=== PATIENT | female | born 1985 | race Caucasian/White ===

== ENCOUNTER 2024-03-19 20:32 | Outpatient (REF) | payer MEDICAID, SELFPAY ==
[2024-03-23 19:07] LABS: Age Gdln ACOG Testing Note (.); HPV Aptima Negative (Negative); IGP, Aptima HPV, rfx 16/18,45 Note (.)
== END 2024-03-19 20:33 | disposition home or self-care (01) ==
LOC: LAB 20:32
PROVIDERS: Visit Provider Physician Assistant
DX: Z01.419 Encounter for gynecological examination (general) (routine) without abnormal findings (principal)
CPT/HCPCS: 87624; G0145

== ENCOUNTER 2024-05-07 12:50 | Outpatient (OUT) | payer MEDICAID, SELFPAY | END 2024-05-07 12:51 | disposition home or self-care (01) | LOC: PST 12:52 | PROVIDERS: Visit Provider Obstetrics & Gynecology | DX: Z01.818 Encounter for other preprocedural examination (principal); Z30.2 Encounter for sterilization ==

== ENCOUNTER 2024-05-18 06:12 | Day surgery (SDC) | payer MEDICAID, SELFPAY ==
[2024-05-07 12:58] VITALS: BP 118/80; PULSE 86; TEMP 36.3; O2SAT 96; BMI 46.1
[2024-05-18] VITALS (17 sets, daily range): BP systolic 102–112; BP diastolic 54–74; PULSE 91–112; TEMP 36.2–36.5; O2SAT 87–97; BMI 46.1
--- OUTSIDE RECORDS SUMMARY | 2024-05-18 06:18 | XMS_ITS | CCD ---
Author Organization [facility] CliniSyme Care Team Providers Care Data Communications Analyst Name Role Phone ROBERT MONTENEGRO Attending Unavailable IDANIA HI Primary Care Unavailable ROBERT MONTENEGRO Admitting Unavailable ARVIN GODOY V Consulting Unavailable ROBERT MONTENEGRO Consulting Unavailable ROBERT MONTENEGRO Consulting Unavailable ROBERT MONTENEGRO Attending Unavailable ROBERT MONTENEGRO Admitting Unavailable MISC, DOCTOR Primary Care Unavailable ROBERT MONTENEGRO Attending Unavailable ROBERT MONTENEGRO Admitting Unavailable IDANIA HI Primary Care Unavailable FRANCES VIVAR Consulting Unavailable ROBERT MONTENEGRO Consulting Unavailable ROBERT MONTENEGRO Attending Unavailable ROBERT MONTENEGRO Admitting Unavailable ROBERT MONTENEGRO Consulting Unavailable IDANIA HI Primary Care Unavailable ROBERT MONTENEGRO Attending Unavailable ROBERT MONTENEGRO Admitting Unavailable ROBERT MONTENEGRO Consulting Unavailable MISC, DOCTOR Primary Care Unavailable ROBERT MONTENEGRO Attending Unavailable ROBERT MONTENEGRO Consulting Unavailable IDANIA HI Primary Care Unavailable ROBERT MONTENEGRO Admitting Unavailable ROBERT MONTENEGRO Attending Unavailable ROBERT MONTENEGRO Admitting Unavailable MISC, DOCTOR Primary Care Unavailable ROBERT MONTENEGRO Attending Unavailable ROBERT MONTENEGRO Consulting Unavailable IDANIA HI Primary Care Unavailable ROBERT MONTENEGRO Admitting Unavailable ROBERT MONTENEGRO Procedure Practitioner Unavailab ROBERT Alva Attending Unavailable ROBERT MONTENEGRO Admitting Unavailable MISC, DOCTOR Primary Care Unavailable TRI PHILLIPS Consulting Unavailable ARVIN GODOY V Consulting Unavailable SEMAJ RINCON Consulting Unavailable ROBERT MONTENEGRO Consulting Unavailable ABIDA HOOVER Consulting Unavailable ALEXIA NIXON Consulting Unavailable ROBERT MONTENEGRO Consulting Unavailable ROBERT MONTENEGRO Admitting Unavailable ROBERT MONTENEGRO Attending Unavailable ROBERT MONTENEGRO Consulting Unavailable ROBERT MONTENEGRO Attending Unavailable ROBERT MONTENEGRO Admitting Unavailable Mikki Huang DO Primary Care Provider IDANIA HI Referring Unavailable IDANIA HI Primary Care Unavailable MIKKI HUANG Attending Unavailable ZULEMA, MALLORIE S Attending Unavailable MIKKI HUANG Attending Unavailable ZULEMA, MALLORIE S Attending Unavailable ZULEMA, MALLORIE S Attending Unavailable ZULEMA, MALLORIE S Attending Unavailable ZULEMA, MALLORIE S Attending Unavailable KAMPFER, ANN Attending Unavailable KAMPFER, ANN Referring Unavailable KAMPFER, ANN Attending Unavailable ZULEMA, MALLORIE S Attending Unavailable LIBRA LOVE Attending Unavailable KAMPFER, ANN Attending Unavailable ZULEMA, MALLORIE S Attending Unavailable ZULEMA, MALLORIE S Attending Unavailable ZULEMA, MALLORIE S Attending Unavailable KAMPFER, ANN Attending Unavailable ROMA VICTORIA Attending Unavailable [facility] Referring Unavailable ZULEMA, MALLORIE S Attending Unavailable MCKENZIE, SEMAJ Attending Unavailable MCKENZIE, SEAMJ Attending Unavailable ZULEMA, MALLORIE S Attending Unavailable Allergies Allergy Classification Reported Allergen(s) Allergy Type Date of Onset Reaction(s) Facility (2 sources) Codeine; Translations: [CODEINE] Drug Allergy 0 [facility] (1 source) Penicillin Drug Allergy 0 [facility] (2 sources) Codeine Drug Allergy [address] [facility] (3 sources) Penicillins; Translations: [PENICILLINS] Drug Intolerance 0 Hives, Rash [facility] Medications Current Medications Medication Drug Class(es) Dates Sig (Normalized) Sig (Original) hydrOXYzine hydrochloride 25 mg oral tablet (2 sources) Antihistamine Start: 06-14-2023 take 1 tablet by mouth three times daily as needed for anxiety hydrOXYzine HCl (Atarax) 25 MG tablet Indications: Anxiety Take 1 tablet (25 mg) by mouth 3 (three) times a day as needed for anxiety. 30 tablet 3 06/14/2023 Active Problems Active Problems Problem Classification Problem Date Documented Da te Episodic/Chronic Anxiety disorders (5 sources) Anxiety; Translations: [Anxiety disorder, unspecified] Onset: 06-14-2023 06-14-2023 Chronic Diabetes mellitus without complication (4 sources) Other abnormal glucose; Translations: [OTHER ABNORMAL GLUCOSE] Onset: 11-01-2020 Episodic Menstrual disorders (4 sources) Secondary amenorrhea; Translations: [SECONDARY AMENORRHEA] Onset: 06-26-2020 Chronic Mood disorders (5 sources) Moderately severe depression; Translations: [Moderately severe depression] Onset: 06-14-2023 06-14-2023 Chronic Other complications of ; puerperium affecting management of mother (1 source) Obesity complicating childbirth; Translations: [OBESITY COMPLICATING CHILDBIRTH] Onset: 12-10-2020 Chronic Other complications of ; puerperium affecting management of mother (1 source) Other mental disorders complicating childbirth; Translations: [OT MENTAL D/O COMP CHILDBIRTH] Onset: 12-10-2020 Episodic Other complications of (4 sources) Maternal care for excessive growth, third trimester, not applicable or unspecified; Translations: [MAT CARE EXCSS FTL GRTH 3RD TRI UNS] Onset: 11-19-2020 Episodic Other complications of (4 sources) Other specified related conditions, unspecified trimester; Translations: [OTH SPEC PREG RELATED COND UNS TRI] Onset: 09-18-2020 Episodic Other nutritional; endocrine; and metabolic disorders (1 source) Obesity, unspecified; Translations: [OBESITY UNSPECIFIED] Onset: 12-10-2020 Chronic Other nutritional; endocrine; and metabolic disorders (2 sources) Morbid obesity; Translations: [Morbid (severe) obesity due to excess calories] Onset: 06-14-2023 06-14-2023 Chronic Other nutritional; endocrine; and metabolic disorders (2 sources) Body mass index 30+ - obesity; Translations: [Obesity, unspecified] Onset: 06-14-2023 06-14-2023 Chronic Other nutritional; endocrine; and metabolic disorders (2 sources) Body mass index 40+ - severely obese; Translations: [Body mass index (BMI) 40.0-44.9, adult] Onset: 06-14-2023 06-14-2023 Chronic Other and delivery including normal (10 sources) Encounter for routine follow-up; Translations: [Encounter for supervision of normal , unspecified, third trimester] Onset: 06-03-2020 Episodic Previous (3 sources) Maternal care for low transverse scar from previous delivery; Translations: [MAT CARE LW TRANS SCAR PREV C/S DEL] Onset: 12-03-2020 Residual codes; unclassified (1 source) Personal history of other specified conditions; Translations: [PERSONAL HISTORY OTH SPEC CONDITION] Onset: 12-10-2020 Episodic Residual codes; unclassified (1 source) Pain, unspecified; Translations: [Pain, unspecified] Onset: 02-08-2024 Episodic Residual codes; unclassified (1 source) Unspecified blood type, Rh negative; Translations: [UNSPECIFIED BLOOD TYPE RH NEGATIVE] Onset: 09-25-2020 Residual codes; unclassified (1 source) 39 weeks gestation of ; Translations: [39 WEEKS GESTATION OF ] Onset: 12-10-2020 Residual codes; unclassified (1 source) 36 weeks gestation of ; Translations: [36 WEEKS GESTATION OF ] Onset: 11-25-2020 Substance-related disorders (6 sources) History of clinical finding in subject; Translations: [History of marijuana use] Onset: 07-16-2020 06-14-2023 Chronic Thyroid disorders (6 sources) Acquired hypothyroidism; Translations: [Hypothyroidism, unspecified] Onset: 06-14-2023 06-14-2023 Chronic Unclassified (5 sources) CONTACT W/AND (SUSP) EXPOS COVID-19; Translations: [CONTACT W/AND (SUSP) EXPOS COVID-19] Onset: 12-01-2020 Past or Other Problems Problem Classification Problem Date Documented Date Episodic/Chronic Mood disorders (2 sources) Mood disorders Onset: 06-14-2023 06-14-2023 Other complications of (4 sources) Supervision of other high risk pregnancies, unspecified trimester; Translations: [SUP OTH HIGH RISK UNS TRI] Onset: 07-25-2020 Episodic Other complications of (2 sources) History of delivery of macrosomal ; Translations: [Supervision of with other poor reproductive or obstetric history, unspecified trimester] Onset: 07-16-2020 06-14-2023 Episodic Other connective tissue disease (2 sources) Fibromyalgia; Translations: [Fibromyalgia] Onset: 06-14-2023 06-14-2023 Episodic Other connective tissue disease (2 sources) Neuropathic pain; Translations: [Neuralgia and neuritis, unspecified] Onset: 06-14-2023 06-14-2023 Episodic Other screening for suspected conditions (not mental disorders or infectious disease) (1 source) Encounter for screening for malignant neoplasm of cervix; Translations: [ENC SCREENING MALIG NEOPLASM CERV] Onset: 07-03-2020 Episodic Residual codes; unclassified (2 sources) History of gestational hypertension; Translations: [Personal history of other complications of , childbirth and the puerperium] Onset: 07-16-2020 06-14-2023 Episodic Spondylosis; intervertebral disc disorders; other back problems (2 sources) Low back pain; Translations: [Lumbar pain] Onset: 06-14-2023 06-14-2023 Episodic Results Test Name Value Interpretation Reference Range Facility CBC AUTO DIFFon 12-04-2020 Basophils (Bld) [#/Vol] 0.0 103/ul Normal 0.0-0.1 [facility] Comment on above: Performed By: #### U RCX #### [facility] [address] [place] [address] Donna Tiffany Basophils/100 WBC (Bld) 0.2 % Normal 0.2-2.0 [facility] Comment on above: Performed By: #### U RCX #### [facility] [address] [place] [address] Donna Tiffany Eosinophils (Bld) [#/Vol] 0.1 103/ul Normal 0.0-0.7 [facility] Comment on above: Performed By: #### U RCX #### [facility] [address] [place] [address] Donna Tiffany Eosinophils/100 WBC (Bld) 1.5 % Normal 0.9-7.0 [facility] Comment on above: Performed By: #### U RCX #### [facility] [address] [place] [address] Donna Tiffany Erythrocyte distribution width (RBC) [Ratio] 14.3 % Normal 11.0-15.0 [facility] Comment on above: Performed By: #### U RCX #### [facility] [address] [place], [place] [id number] Donna Tiffany Hematocrit (Bld) [Volume fraction] 31.1 % Critically low 36.0-48.0 [facility] Comment on above: Performed By: #### U RCX #### [facility] [address] [place], [place] [id number] Donna Tiffany Hemoglobin (Bld) [Mass/Vol] 9.9 g/dL Critically low 12.0-16.0 [facility] Comment on above: Performed By: #### U RCX #### [facility] [address] [place] [address] Donna Tiffany IG # 0.04 10e3/ul Critically high 0.00-0.03 The [facility] Comment on above: Performed By: #### U RCX #### [facility] [address] [place] [address] Donna Tiffany IG % 0.5 % Normal 0.0-0.5 [facility] Comment on above: Performed By: #### U RCX #### [facility] [address] [place] [address] Donna Tiffany Lymphocytes (Bld) [#/Vol] 1.1 103/ul Critically low 1.2-3.8 [facility] Comment on above: Performed By: #### U RCX #### [facility] [address] [place] [address] Donna Tiffany Lymphocytes/100 WBC (Bld) 12.7 % Critically low 20.5-60.0 [facility] Comment on above: Performed By: #### U RCX #### [facility] [address] [place] [address] Donna Allen MANUAL DIFF REQ NO Normal [facility] Comment on above: Performed By: #### U RCX #### [facility] [address] [place] [address] Donna Tiffany MCH (RBC) [Entitic mass] 28.4 pg Normal 26.7-34.0 [facility] Comment on above: Performed By: #### U RCX #### [facility] [address] [place] [address] Donna Tiffany MCHC (RBC) [Mass/Vol] 31.8 g/dL Normal 29.9-35.2 [facility] Comment on above: Performed By: #### U RCX #### [facility] [address] [place], [place] [address] Donna Tiffany MCV (RBC) [Entitic vol] 89.1 fL Normal 81.0-99.0 [facility] Comment on above: Performed By: #### U RCX #### [facility] [address] [place] [address] Donna Tiffany Monocytes (Bld) [#/Vol] 0.7 103/ul Normal 0.3-0.8 [facility] Comment on above: Performed By: #### U RCX #### [facility] [address] [place] [address] Donna Tiffany Monocytes/100 WBC (Bld) 8.8 % Normal 1.7-12.0 [facility] Comment on above: Performed By: #### U RCX #### [facility] [address] [place] [phone] Donna Tiffany Neutrophils (Bld) [#/Vol] 6.3 103/ul Normal 1.4-6.5 [facility] Comment on above: Performed By: #### U RCX #### [facility] [address] [place] [address] Donna Tiffany Neutrophils/100 WBC (Bld) 76.3 % Critically high 43.0-75.0 [facility] Comment on above: Performed By: #### U RCX #### [facility] [address] [place] [phone] Donna Tiffany Platelet mean volume (Bld) [Entitic vol] 10.6 fL Normal 9.5-13.5 [facility] Comment on above: Performed By: #### U RCX #### [facility] [address] [place] [address] Donna Tiffany Platelets (Bld) [#/Vol] 224 103/ul Normal 150-450 [facility] Comment on above: Performed By: #### U RCX #### [facility] [address] [place] [address] Donna Tiffany RBC (Bld) [#/Vol] 3.49 106/ul Critically low 4.20-5.40 [facility] Comment on above: Performed By: #### U RCX #### [facility] [address] [address] Donna Allen WBC (Bld) [#/Vol] 8.3 103/ul Normal 4.0-11.0 [facility] Comment on above: Performed By: #### U RCX #### [facility] [address] [place] [address] Donna Allen SCREENon 12-04-2020 SCREEN Negative Normal [facility] Comment on above: Performed By: #### F ETSCRN #### [facility] [address] [place] [address] Donna Allen RHOGAMon 12-04-2020 RHOGAM Status Information Issued Quantity 1 Product ID Rh Immune Globulin Lot Number [id number] Issue Date/Time [id number] Normal [facility] Comment on above: Performed By: #### R HOG #### [facility] [address] [place] [address] Donna Allen US NHUNG DOP LEG LTon 12-04-19 US NHUNG DOP LEG LT EXAMINATION: US NHUNG DOP LEG LT HISTORY: Edema of calf COMPARISON: No relevant comparison available. TECHNIQUE: Grayscale, color and Doppler ultrasound FINDINGS: Region: Left leg Thrombus: None Flow: Normal Augmentation: Normal Compressibility: Normal Other: Left lateral popliteal fossa cystic area measuring 3.1 x 1.6 x 1.0 cm. A popliteal cyst is favored. no significant subcutaneous edema IMPRESSION: No deep vein thrombus identified in the left leg *Exam performed in accordance with [facility] practice guidelines- Peripheral venous ultrasound, February 07, 2010. Electronically authenticated by: ARVIN GODOY Date: 2020-12-04 10:29 Normal [facility] CBC AUTO DIFFon 12-03-2020 Basophils (Bld) [#/Vol] 0.0 103/ul Normal 0.0-0.1 [facility] Comment on above: Performed By: #### G BSCX #### [facility] [address] [place] [address] Donna Allen Basophils/100 WBC (Bld) 0.3 % Normal 0.2-2.0 [facility] Comment on above: Performed By: #### G BSCX #### [facility] [address] [place] [address] Donna Tiffany Eosinophils (Bld) [#/Vol] 0.1 103/ul Normal 0.0-0.7 [facility] Comment on above: Performed By: #### G BSCX #### [facility] [address] [place] [address] Donna Tiffany Eosinophils/100 WBC (Bld) 0.7 % Critically low 0.9-7.0 [facility] Comment on above: Performed By: #### G BSCX #### [facility] [address] [place] [address] Donna Tiffany Erythrocyte distribution width (RBC) [Ratio] 13.8 % Normal 11.0-15.0 [facility] Comment on above: Performed By: #### G BSCX #### [facility] [address] [place] [address] Donna Tiffany Hematocrit (Bld) [Volume fraction] 36.6 % Normal 36.0-48.0 [facility] Comment on above: Performed By: #### G BSCX #### [facility] [address] [place] [address] Donna Tiffany Hemoglobin (Bld) [Mass/Vol] 12.2 g/dL Normal 12.0-16.0 [facility] Comment on above: Performed By: #### G BSCX #### [facility] [address] [place] [address] Donna Tiffany IG # 0.05 10e3/ul Critically high 0.00-0.03 [facility] Comment on above: Performed By: #### G BSCX #### [facility] [address] [place], [place] [address] Donna Tiffany IG % 0.6 % Critically high 0.0-0.5 [facility] Comment on above: Performed By: #### G BSCX #### [facility] [address] [place] [address] Donna Tiffany Lymphocytes (Bld) [#/Vol] 1.6 103/ul Normal 1.2-3.8 [facility] Comment on above: Performed By: #### G BSCX #### [facility] [address] [place], [place] [address] Donna Allen Lymphocytes/100 WBC (Bld) 17.3 % Critically low 20.5-60.0 [facility] Comment on above: Performed By: #### G BSCX #### [facility] [address] [place], [place] [address] Donna Allen MANUAL DIFF REQ NO Normal [facility] Comment on above: Performed By: #### G BSCX #### [facility] [address] [place], [place] [address] Donna Allen MCH (RBC) [Entitic mass] 28.8 pg Normal 26.7-34.0 [facility] Comment on above: Performed By: #### G BSCX #### [facility] [address] [place], [place] [address] Donna Allen MCHC (RBC) [Mass/Vol] 33.3 g/dL Normal 29.9-35.2 [facility] Comment on above: Performed By: #### G BSCX #### [facility] [address] [place], [place] [address] Donna Allen MCV (RBC) [Entitic vol] 86.5 fL Normal 81.0-99.0 [facility] Comment on above: Performed By: #### G BSCX #### [facility] [address] [place], [place] [address] Donna Tiffany Monocytes (Bld) [#/Vol] 0.7 103/ul Normal 0.3-0.8 [facility] Comment on above: Performed By: #### G BSCX #### [facility] [address] [place], [place] [address] Donna Cabelloen Monocytes/100 WBC (Bld) 7.7 % Normal 1.7-12.0 [facility] Comment on above: Performed By: #### G BSCX #### [facility] [address] [place], [place] [address] Donna Tiffany Neutrophils (Bld) [#/Vol] 6.6 103/ul Critically high 1.4-6.5 [facility] Comment on above: Performed By: #### G BSCX #### [facility] [address] [place], [place] [address] Donnaanastacia Cabelloen Neutrophils/100 WBC (Bld) 73.4 % Normal 43.0-75.0 [facility] Comment on above: Performed By: #### G BSCX #### [facility] [address] [place], [place] [address] Donna Tiffany Platelet mean volume (Bld) [Entitic vol] 10.3 fL Normal 9.5-13.5 [facility] Comment on above: Performed By: #### G BSCX #### [facility] [address] [place], [place] [address] Donna Tiffany Platelets (Bld) [#/Vol] 288 103/ul Normal 150-450 [facility] Comment on above: Performed By: #### G BSCX #### [facility] [address] [place], [place] [address] Donna Tiffany RBC (Bld) [#/Vol] 4.23 106/ul Normal 4.20-5.40 [facility] Comment on above: Performed By: #### G BSCX #### [facility] [address] [place], [place] [address] Donna Tiffany WBC (Bld) [#/Vol] 9.0 103/ul Normal 4.0-11.0 [facility] Comment on above: Performed By: #### G BSCX #### [facility] [address] [place] [address] Donna Tiffany CULTURE URINEon 12-03-2020 CULTURE URINE Culture Observations : Light growth of mixed genital sinan.No potential pathogens seen. Normal [facility] Comment on above: Performed By: #### U RCX #### [facility] [address] [place] [phone] Donna Tiffany DRUG SCREEN RAPID (URINE)on 12-03-2020 AMP Negative Normal NEGATIVE [facility] Comment on above: Performed By: #### G BSCX #### [facility] [address] [place] [address] Donna Tiffany BAR Negative Normal NEGATIVE [facility] Comment on above: Performed By: #### G BSCX #### [facility] [address] [place] [address] Donna Tiffany BUP Negative Normal NEGATIVE [facility] Comment on above: Performed By: #### G BSCX #### [facility] [address] [place] [address] Donna Tiffany BZO Negative Normal NEGATIVE [facility] Comment on above: Performed By: #### G BSCX #### [facility] [address] [place] [address] Donna Tiffany MALINI Negative Normal NEGATIVE [facility] Comment on above: Performed By: #### G BSCX #### [facility] [address] [place] [address] CUT-OFFS SEE BELOW Normal [facility] Comment on above: Result Comment: AMP (Amphetamine): 500ng/mL, BAR (Barbituates): 200 ng/mL, BZO (Benzodiazepines): 150 ng/mL, BUP (Buprenorphine): 10 ng/mL, MALINI (Cocaine): 150 ng/mL, mAMP (Methamphetamine): 500 ng/mL, MTD (Methadone): 200 ng/mL, OPI (Opiates): 100 ng/mL or 2000 ng/mL, OXY (Oxycodone): 100 ng/mL, PCP (Phencyclidine): 25 ng/mL, PPX (Propoxyphene): 300 ng/mL, THC (Cannabinoids): 50 ng/mL, TCA (Trycyclic Antidepressants): 300 ng/mL Performed By: #### G BSCX #### [facility] [address] [place] [address] DRUG CUT HEADER DRUG CLASS TEST SYSTEM CUT-OFF CONCENTRATIONS ARE FOLLOWS: Normal [facility] Comment on above: Performed By: #### G BSCX #### [facility] [address] [place] [address] Donna Tiffany mAMP Negative Normal NEGATIVE [facility] Comment on above: Performed By: #### G BSCX #### [facility] [address] [place] [address] Donna Tiffany MTD Negative Normal NEGATIVE [facility] Comment on above: Performed By: #### G BSCX #### [facility] [address] [place] [address] Donna Tiffany OPI Negative Normal NEGATIVE [facility] Comment on above: Performed By: #### G BSCX #### [facility] [address] [place] [address] Donna Tiffany OXY Negative Normal NEGATIVE [facility] Comment on above: Performed By: #### G BSCX #### [facility] [address] [place] [address] Donna Tiffany PCP Negative Normal NEGATIVE [facility] Comment on above: Performed By: #### G BSCX #### [facility] [address] [place] [address] Donna Tiffany PPX Negative Normal NEGATIVE [facility] Comment on above: Performed By: #### G BSCX #### [facility] [address] [place] [address] Donna Tiffany TCA Negative Normal NEGATIVE [facility] Comment on above: Performed By: #### G BSCX #### [facility] [address] [place] [address] Donna Tiffany THC Negative Normal NEGATIVE [facility] Comment on above: Performed By: #### G BSCX #### [facility] [address] [place] [address] Donna Tiffany TYPE AND SCREENon 12-03-2020 TYPE AND SCREEN Negative Normal [facility] Comment on above: Performed By: #### C T/NGNA #### [facility] [address] [place] [address] Donna Tiffany UA (CLEAN/CATCH) EMBLEM FUSER TENDER/MICRO I F IND.on 12-03-2020 Bilirubin [Mass/Vol] Negative Normal NEGATIVE [facility] Comment on above: Performed By: #### G BSCX #### [facility] [address] [place], [place] [address] Donna Tiffany BLOOD Negative Normal NEGATIVE [facility] Comment on above: Performed By: #### G BSCX #### [facility] [address] [place] [address] Donna Tiffany Clarity (U) CLEAR Normal CLEAR [facility] Comment on above: Performed By: #### G BSCX #### [facility] [address] [place] [address] Donna Tiffany Color (U) YELLOW Normal YELLOW [facility] Comment on above: Performed By: #### G BSCX #### [facility] [address] [place] [address] Donna Tiffany Glucose [Mass/Vol] Negative Normal NEGATIVE [facility] Comment on above: Performed By: #### G BSCX #### [facility] [address] [place] [address] Donna Tiffany Ketones Ql (U) Negative Normal NEGATIVE [facility] Comment on above: Performed By: #### G BSCX #### [facility] [address] [place] [address] Donna Tiffany Nitrite Ql (U) Negative Normal NEGATIVE [facility] Comment on above: Performed By: #### G BSCX #### [facility] [address] [place] [address] Donna Tiffany pH (Bld) 6.0 Normal 5-9 [facility] Comment on above: Performed By: #### G BSCX #### [facility] [address] [place] [address] Donna Tiffany SPEC GRAVITY >=1.030 Abnormal 1.005-<=1.025 [facility] Comment on above: Performed By: #### G BSCX #### [facility] [address] [place] [address] Donna Tiffany UA PROTEIN TRACE Normal NEGATIVE/ TRACE [facility] Comment on above: Performed By: #### G BSCX #### [facility] [address] [place] [address] Donna Tiffany UR MICRO IND INDICATED Normal [facility] Comment on above: Performed By: #### G BSCX #### [facility] [address] [id number] Donna Tiffany Urobilinogen Qn (U) 0.2 EU/dl Normal 0.2 - 1.0 The [facility] Comment on above: Performed By: #### G BSCX #### [facility] [address] [place], [place] [address] Donna Tiffany WBC (Bld) [#/Vol] TRACE Abnormal NEGATIVE The [facility] Comment on above: Performed By: #### G BSCX #### [facility] [address] [place] [id number] Donna Tiffany URINE MICROSCOPIC ONLYon AMORPHOUS CRYSTALS FEW Normal The [facility] Comment on above: Performed By: #### U RCX #### [facility] [address] [place], [place] [id number] Donna Tiffany Bacteria LM.HPF (Urine sed) [#/Area] SMALL Abnormal NONE SEEN [facility] Comment on above: Performed By: #### U RCX #### [facility] [address] [place], [place] [address] Donna Tiffany CAST NONE SEEN Normal NONE SEEN [facility] Comment on above: Performed By: #### U RCX #### [facility] [address] [place], [place] [id number] Donna Tiffany Crystals LM Nom (Urine sed) SEEN Abnormal NONE SEEN [facility] Comment on above: Performed By: #### U RCX #### [facility] [address] [place] [address] Donna Tiffany CULTURE INDICATED Normal [facility] Comment on above: Performed By: #### U RCX #### [facility] [address] [place], [place] [address] Donna Tiffany Epithelial cells LM.HPF (Urine sed) [#/Area] MANY Abnormal NONE SEEN /RARE [facility] Comment on above: Performed By: #### U RCX #### [facility] [address] [place], [place] [address] Donna Tiffany MUCOUS SMALL Abnormal NONE SEEN [facility] Comment on above: Performed By: #### U RCX #### [facility] [address], [place] [address] Donna Allen RBC (U) [#/Vol] NONE SEEN Abnormal 0-2 The [facility] Comment on above: Performed By: #### U RCX #### [facility] [address], [place] [address] Donna Allen WBC (Bld) [#/Vol] 0-2 Abnormal NONE SEEN The [facility] Comment on above: Performed By: #### U RCX #### [facility] [address], [place] [address] oDnna Allen Covid-19 PCR (CVDTBH)on 11-14 Covid-19 PCR NOT DETECTED Normal NOT DETECTED The [facility] Comment on above: Result Comment: This test is not yet approved or cleared by the [place] FDA. When there are no FDA-approved or cleared tests available, and other criteria are met, FDA can make tests available under an emergency access mechanism called an Emergency Use Authorization (EUA). The EUA for this test is supported by the Construction Quality Control Manager of Health and Human Service's (HHS's) declaration that circumstances exist to justify the emergency use of in vitro diagnostics for the detection and/or diagnosis of the virus that causes COVID-19. This EUA will remain in effect (meaning this test can be used) for the duration of the COVID-19 declaration justifying emergency of IVDs, unless it is terminated or revoked by FDA (after which the test may no longer be used). Performed By: #### G BSCX #### [facility] [address], [place] [address] Donna Allen EUA Statement SEE BELOW Normal [facility] Comment on above: Result Comment: This test is not yet approved or cleared by the [place] FDA. When there are no FDA-approved or cleared tests available, and other criteria are met, FDA can make tests available under an emergency access mechanism called an Emergency Use Authorization (EUA). The EUA for this test is supported by the Construction Quality Control Manager of Health and Human Service?s (HHS?s) declaration that circumstances exist to justify the emergency use of in vitro diagnostics for the detection and/or diagnosis of the virus that causes COVID-19. This EUA will remain in effect (meaning this test can be used) for the duration of the COVID-19 declaration justifying emergency of IVDs, unless it is terminated or revoked by FDA (after which the test may no longer be used). When diagnostic testing is negative, the possibility of a false negative should be considered in the context of a patients recent exposures and the presence of clinical signs and symptoms consistent with SARS-CoV-2. Performed By: #### G BSCX #### [facility] [address] [place] [address] Donnaanastacia Allen PREG GROWTHon 11-19-2020 US PREG GROWTH EXAMINATION: US PREG GROWTH HISTORY: Large for gestation age fetus COMPARISON: No relevant comparison available. FINDINGS: Heart Rate: 158 Amniotic Fluid Volume: 15.4 cm Number: 1.0 Position: Cephalic presentation, longitudinal lie Maximum Vertical Pocket: 0 cm 5.6 cm cm 3.6 cm cm 6.2 cm cm BIOMETRY: BPD: 9.1 cm cm; 36 weeks 6 days; HC: 32.2 cmcm; 36 weeks 2 days AC: 34.0 cm cm; 37 weeks 6 days FL: 7.3 cm cm; 37 weeks 2 days; % EFW: 7.125295, 3223 g, 69th percentile FL/AC: 0.309912 FL/BPD: 0.414106 HC/AC: 0.828628 GESTATIONAL AGE: Age by EDC: 37 weeks 0 days LUIS ENRIQUE by EDC: 12/10/2020 Age by US: 37 weeks 0 days LUIS ENRIQUE by US: 12/10/2020 IMPRESSION: Normal interval growth Electronically authenticated by: ARVIN GODOY Date: 2020-11-19 15:11 Normal [facility] CHLAMYDIA/GONOCOCCUS [place] (SW AB/URINE/PAPon 11-18-2020 Chlamydia trachomatis, [place] Negative Normal Negative [facility] Comment on above: Performed By: #### C T/NGNA #### [facility] [address] [place] [address] Donna Allen Neisseria gonorrhoeae, [place] Negative Normal Negative [facility] Comment on above: Performed By: #### C T/NGNA #### [facility] [address] [place], [place] [address] Donna Allen GROUP B STREP CULTUREon 10-16 S. agalactiae Ag Ql (Unsp spec) Culture Observations: Negative for Group B Streptococcus. Normal [facility] Comment on above: Performed By: #### G BSCX #### [facility] [address] [place] [address] Odnna Tiffany GTT 3 HR PREGon 11-01-2020 Glucose [Mass/Vol] 88 mg/dL Normal 74-106 [facility] Comment on above: Performed By: #### G TT3P #### [facility] [address] [place] [address] Donna Tiffany Glucose [Mass/Vol] 169 mg/dL Normal [facility] Comment on above: Performed By: #### G TT3P #### [facility] [address] [place] [address] Donna Tiffany Glucose [Mass/Vol] 131 mg/dL Normal [facility] Comment on above: Performed By: #### G TT3P #### [facility] [address] [place] [address] Donna Tiffany RHOGAMon 09-19-2020 RHOGAM Status Information Issued Quantity 1 Product ID Rh Immune Globulin Lot Number [id number] Issue Date/Time [id number] Normal [facility] Comment on above: Performed By: #### R HOG #### [facility] [address] [place], [place] [address] Donna Tiffany ABO AND RH TYPEon 09-18-2020 ABO and Rh group Nom (Bld) ABO Rh Typing A Rh Negative Normal [facility] Comment on above: Performed By: #### A BORH #### [facility] [address] [place], [place] [address] Donna Tiffany BUNon 07-25-2020 Urea nitrogen [Mass/Vol] 6.0 mg/dL Critically low 7.0-17.0 [facility] Comment on above: Performed By: #### G BSCX #### [facility] [address] [place] [address] Donna Tiffany CBC AUTO DIFFon 07-25-2020 Basophils (Bld) [#/Vol] 0.0 103/ul Normal 0.0-0.1 [facility] Comment on above: Performed By: #### C T/NGNA #### [facility] [address] [place] [address] Donna Tiffany Basophils/100 WBC (Bld) 0.4 % Normal 0.2-2.0 [facility] Comment on above: Performed By: #### C T/NGNA #### [facility] [address] [place] [address] Donna Tiffany Eosinophils (Bld) [#/Vol] 0.0 103/ul Normal 0.0-0.7 [facility] Comment on above: Performed By: #### C T/NGNA #### [facility] [address] [place] [address] Donna Tiffany Eosinophils/100 WBC (Bld) 0.4 % Critically low 0.9-7.0 [facility] Comment on above: Performed By: #### C T/NGNA #### [facility] [address] [place] [address] Donna Tiffany Erythrocyte distribution width (RBC) [Ratio] 13.2 % Normal 11.0-15.0 [facility] Comment on above: Performed By: #### C T/NGNA #### [facility] [address] [place] [address] Donna Tiffany Hematocrit (Bld) [Volume fraction] 37.9 % Normal 36.0-48.0 [facility] Comment on above: Performed By: #### C T/NGNA #### [facility] [address] [place] [address] Donna Tiffany Hemoglobin (Bld) [Mass/Vol] 12.9 g/dL Normal 12.0-16.0 [facility] Comment on above: Performed By: #### C T/NGNA #### [facility] [address] [place] [address] Donna Tiffany IG # 0.06 10e3/ul Critically high 0.00-0.03 [facility] Comment on above: Performed By: #### C T/NGNA #### [facility] [address] [id number] Donna Tiffany IG % 0.5 % Normal 0.0-0.5 [facility] Comment on above: Performed By: #### C T/NGNA #### [facility] [address] [place] [address] Donna Tiffany Lymphocytes (Bld) [#/Vol] 1.4 103/ul Normal 1.2-3.8 [facility] Comment on above: Performed By: #### C T/NGNA #### [facility] [address] [place], [place] [address] Donna Tiffany Lymphocytes/100 WBC (Bld) 12.4 % Critically low 20.5-60.0 [facility] Comment on above: Performed By: #### C T/NGNA #### [facility] [address] [place], [place] [address] Donna Cabelloen MANUAL DIFF REQ NO Normal [facility] Comment on above: Performed By: #### C T/NGNA #### [facility] [address] [place] [address] Donnaanastacia Cabelloen MCH (RBC) [Entitic mass] 30.3 pg Normal 26.7-34.0 [facility] Comment on above: Performed By: #### C T/NGNA #### [facility] [address] [place], [place] [address] Donnaanastacia Allen MCHC (RBC) [Mass/Vol] 34.0 g/dL Normal 29.9-35.2 [facility] Comment on above: Performed By: #### C T/NGNA #### [facility] [address] [place], [place] [address] Donnaanastacia Allen MCV (RBC) [Entitic vol] 89.0 fL Normal 81.0-99.0 [facility] Comment on above: Performed By: #### C T/NGNA #### [facility] [address] [place] [address] Donna Tiffany Monocytes (Bld) [#/Vol] 0.5 103/ul Normal 0.3-0.8 [facility] Comment on above: Performed By: #### C T/NGNA #### [facility] [address] [place], [place] [address] Donna Tiffany Monocytes/100 WBC (Bld) 4.5 % Normal 1.7-12.0 [facility] Comment on above: Performed By: #### C T/NGNA #### [facility] [address] [place], [place] [address] Donna Tiffany Neutrophils (Bld) [#/Vol] 9.2 103/ul Critically high 1.4-6.5 [facility] Comment on above: Performed By: #### C T/NGNA #### [facility] [address] [place] [address] Donna Tiffany Neutrophils/100 WBC (Bld) 81.8 % Critically high 43.0-75.0 [facility] Comment on above: Performed By: #### C T/NGNA #### [facility] [address] [place] [address] Donna Tiffany Platelet mean volume (Bld) [Entitic vol] 10.0 fL Normal 9.5-13.5 [facility] Comment on above: Performed By: #### C T/NGNA #### [facility] [address] [place], [place] [address] Donna Tiffany Platelets (Bld) [#/Vol] 249 103/ul Normal 150-450 [facility] Comment on above: Performed By: #### C T/NGNA #### [facility] [address] [place], [place] [address] Donna Tiffany RBC (Bld) [#/Vol] 4.26 106/ul Normal 4.20-5.40 [facility] Comment on above: Performed By: #### C T/NGNA #### [facility] [address] [place] [address] Donna Tiffany WBC (Bld) [#/Vol] 11.2 103/ul Critically high 4.0-11.0 [facility] Comment on above: Performed By: #### C T/NGNA #### [facility] [address] [place], [place] [address] Donna Tiffany CREATININE CLEARon 0 CREA CLEARANCE 155.36 ml/min Critically high 75.00-115.00 [facility] Comment on above: Performed By: #### G LU1HR #### [facility] [address] [place] [address] Donna Tiffany CREA, 24 HR UR 1584.79 mg/24 hr Normal 800.00-1, 800.0 0 [facility] Comment on above: Performed By: #### G LU1HR #### [facility] [address] [place] [address] Donna Tiffany Creatinine [Mass/Vol] 0.57 mg/dL Normal 0.52-1.04 [facility] Comment on above: Performed By: #### G LU1HR #### [facility] [address] [place] [address] Donna Tiffany UR TOT VOL 1900 ml/24 HR Normal [facility] Comment on above: Performed By: #### G LU1HR #### [facility] [address] [place] [address] Donna Tiffany Performed By: #### C T/NGNA #### [facility] [address] [place] [address] Donna Tiffany URINE CREAT 83.41 mg/dL Normal 20.00-300.00 [facility] Comment on above: Performed By: #### G LU1HR #### [facility] [address] [place] [address] Donna Tiffany GLUCOSE - 1HRon 07-25-2020 Glucose [Mass/Vol] 149 mg/dL Critically high 74-106 [facility] Comment on above: Performed By: #### G LU1HR #### [facility] [address] [place] [address] Donna Tiffany LDHon 07-25-2020 LDH 147 U/L Normal 122-222 [facility] Comment on above: Performed By: #### G LU1HR #### [facility] [address] [place] [address] Donna Allen PROTEIN 24HR URINEon 020 T PROT, 24 HR UR 349.6 mg/24 hr Critically high 42.0-225.0 [facility] Comment on above: Performed By: #### C T/NGNA #### [facility] [address] [place] [address] Donna Allen UR PROT 18.4 mg/dL Critically high <=12.0 [facility] Comment on above: Performed By: #### C T/NGNA #### [facility] [address] [place] [address] Donna Tiffany SGOTon 07-25-2020 AST [Catalytic activity/Vol] 11 U/L Critically low 14-36 [facility] Comment on above: Performed By: #### G BSCX #### [facility] [address] [place] [address] Donna Cabelloen SGPTon 07-25-2020 ALT [Catalytic activity/Vol] 7 U/L Critically low 9-52 [facility] Comment on above: Performed By: #### G BSCX #### [facility] [address] [place] [address] Donna Allen TSHon 07-25-2020 TSH Qn m[IU]/L Critically low 0.470-4.680 [facility] Comment on above: Performed By: #### G LU1HR #### [facility] [address] [place] [address] Donna Allen TSH Qn SEE BELOW Normal [facility] Comment on above: Result Comment: <0.3 4 UIU/ml HYPERTHYROID 0.34-5.60 UIU/ml EUTHYROID >5.60 UIU/ml HYPOTHYROID Performed By: #### G LU1HR #### [facility] [address] [place] [address] Donna Allen URIC ACID SERUMon 07-25-2020 Urate [Mass/Vol] 3.3 mg/dL Normal 2.5-6.2 [facility] Comment on above: Performed By: #### G LU1HR #### [facility] [address] [place] [address] Donna Allen [address]AP W CT/NG,HR HPV RFX 16 AN D 18on 07-01-2020 Chlamydia, Nuc. Acid Amp Negative Normal Negative [facility] Comment on above: Result Comment: Perf ormed at: =G Performed By: #### G LU1HR #### [facility] [address] [place] [address] Donna Allen DIAGNOSIS: Comment Normal [facility] Comment on above: Result Comment: NEGA TIVE FOR INTRAEPITHELIAL LESION OR MALIGNANCY. THIS SPECIMEN WAS RESCREENED PART OF OUR FILM ARCHIVIST PROGRAM. Performed at: WB Performed By: #### G LU1HR #### [facility] [address] [place] [address] Donna Tiffany Gonococcus, Nuc. Acid Amp Negative Normal Negative [facility] Comment on above: Result Comment: Perf ormed at: =G Performed By: #### G LU1HR #### [facility] [address] [place] [address] Donna Tiffany HPV, high-risk Negative Normal Negative [facility] Comment on above: Result Comment: This nucleic acid amplification high-risk HPV test detects thirteen high-risk types (16,18,31,33,35,39,45,51,52,56,58,59,68) without differentiation. Performed at: =G Performed By: #### G LU1HR #### [facility] [address] [place] [address] Donna Allen Methodology: Comment Normal [facility] Comment on above: Result Comment: This liquid based ThinPrep(R) pap test was screened with the use of an image guided system. Performed at: WB Performed By: #### G LU1HR #### [facility] [address] [place] [address] Donna Allen Note: Comment Normal [facility] Comment on above: Result Comment: The Pap smear is a screening test designed to aid in the detection of premalignant and malignant conditions of the uterine cervix. It is not a diagnostic procedure and should not be used as the sole means of detecting cervical cancer. Both false-positive and false-negative reports do occur. . Performed at: WB Performed By: #### G LU1HR #### [facility] [address] [place] [address] Donna Tiffany Performed by: Comment Normal [facility] Comment on above: Result Comment: Ele Walker, Conventional Mortgage Underwriter (ASCP) Performed at: WB Performed By: #### G LU1HR #### [facility] [address] [place] [address] Donnaanastacia Allen QC reviewed by: Comment Normal [facility] Comment on above: Result Comment: Solomon Nichole, Supervisory Conventional Mortgage Underwriter (ASCP) Performed at: WB Performed By: #### G LU1HR #### [facility] [address] [place] [address] Donna Tiffany Specimen adequacy: Comment Normal [facility] Comment on above: Result Comment: Sati sfactory for evaluation. Endocervical and/or squamous metaplastic cells (endocervical component) are present. Performed at: WB Performed By: #### G LU1HR #### [facility] [address] [place] [address] Donna Allen . . Normal [facility] Comment on above: Result Comment: Perf ormed at: WB Performed By: #### G LU1HR #### [facility] [address] [place] [address] Donna Allen CULTURE URINEon 06-26-2020 CULTURE URINE Culture Observations : Light growth of mixed genital sinan. No potential pathogens seen. Normal [facility] Comment on above: Performed By: #### C T/NGNA #### [facility] [address] [place] [address] Donnaanastacia Allen UA RANDOM W/MICROSCOPICon Bacteria LM.HPF (Urine sed) [#/Area] SMALL Normal NONE SEEN [facility] Comment on above: Performed By: #### G LU1HR #### [facility] [address] [place] [address] Donna Tiffany Bilirubin [Mass/Vol] Negative Normal NEGATIVE [facility] Comment on above: Performed By: #### G LU1HR #### [facility] [address] [place] [address] Donna Tiffany BLOOD Negative Normal NEGATIVE [facility] Comment on above: Performed By: #### G LU1HR #### [facility] [address] [place] [address] Donna Tiffany CAST NONE SEEN Normal NONE SEEN [facility] Comment on above: Performed By: #### G LU1HR #### [facility] [address] [place] [address] Donna Tiffany Clarity (U) CLEAR Normal [facility] Comment on above: Performed By: #### G LU1HR #### [facility] [address] [place] [address] Donna Tiffany Color (U) YELLOW Normal YELLOW [facility] Comment on above: Performed By: #### G LU1HR #### [facility] [address] [place] [address] Donna Tiffany Crystals LM Nom (Urine sed) NONE SEEN Normal NONE SEEN [facility] Comment on above: Performed By: #### G LU1HR #### [facility] [address] [place] [address] Donna Tiffany Epithelial cells LM.HPF (Urine sed) [#/Area] MANY Normal [facility] Comment on above: Performed By: #### G LU1HR #### [facility] [address] [place] [address] Donna Tiffany Glucose [Mass/Vol] Negative Normal NEGATIVE [facility] Comment on above: Performed By: #### G LU1HR #### [facility] [address] [place] [address] Donna Tiffany Ketones Ql (U) TRACE Normal NEGATIVE [facility] Comment on above: Performed By: #### G LU1HR #### [facility] [address] [place] [address] Donna Tiffany MUCOUS TRACE Normal NONE SEEN [facility] Comment on above: Performed By: #### G LU1HR #### [facility] [address] [place] [address] Donna Tiffany Nitrite Ql (U) Negative Normal NEGATIVE [facility] Comment on above: Performed By: #### G LU1HR #### [facility] [address] [place], [place] [address] Donna Tiffany pH (Bld) 7.5 Normal 5-9 [facility] Comment on above: Performed By: #### G LU1HR #### [facility] [address] [place], [place] [address] Donna Tiffany Protein [Mass/Vol] Negative Normal [facility] Comment on above: Performed By: #### G LU1HR #### [facility] [address] [place], [place] [address] Donna Tiffany RBC (Bld) [#/Vol] 2-5 Normal 0-2 [facility] Comment on above: Performed By: #### G LU1HR #### [facility] [address] [place] [address] Donna Tiffany SPEC GRAVITY 1.020 Normal 1.005-<=1.025 [facility] Comment on above: Performed By: #### G LU1HR #### [facility] [address] [place], [place] [address] Donna Tiffany Urobilinogen Qn (U) 0.2 EU/dl Normal [facility] Comment on above: Performed By: #### G LU1HR #### [facility] [address] [place], [place] [address] Donna Tiffany WBC (Bld) [#/Vol] TRACE Normal NEGATIVE The [facility] Comment on above: Performed By: #### G LU1HR #### [facility] [address] [place], [place] [address] Donna Tiffany WBC (Bld) [#/Vol] 10-20 Normal NONE SEEN The [facility] Comment on above: Performed By: #### G LU1HR #### [facility] [address] [place], [place] [id number] Donnaanastacia Allen HEP B SURFACE ANTIGEN SCREEN on 06-03-2020 HBsAg Screen Negative Normal Negative [facility] Comment on above: Performed By: #### G LU1HR #### [facility] [address] [place] [address] Donna Tiffany HEPATITIIS C VIRUS ANTIBODYo n 06-03-2020 Hep C Virus Ab <0.1 Normal 0.0-0.9 [facility] Comment on above: Result Comment: Nega tive: < 0.8 Indeterminate: 0.8 - 0.9 Positive: > 0.9 . The [facility] recommends that a positive HCV antibody result be followed up with a HCV Nucleic Acid Amplification test ([id number]). Performed By: #### G LU1HR #### [facility] [address] [place] [address] Donna Tiffany HGB(ELECTP) FRACTION PROFILE on 06-03-2020 Hemoglobin (Bld) [Mass/Vol] 97.7 % Normal 96.4-98.8 [facility] Comment on above: Performed By: #### G LU1HR #### [facility] [address] [place] [address] Donna Tiffany Hgb A2 2.3 % Normal 1.8-3.2 [facility] Comment on above: Performed By: #### G LU1HR #### [facility] [address] [place] [address] Donna Tiffany Hgb C 0.0 % Normal 0.0 [facility] Comment on above: Performed By: #### G LU1HR #### [facility] [address] [place] [address] Donna Tiffany Hgb F 0.0 % Normal 0.0-2.0 [facility] Comment on above: Performed By: #### G LU1HR #### [facility] [address] [place] [address] Donna Tiffany Hgb S 0.0 % Normal 0.0 [facility] Comment on above: Performed By: #### G LU1HR #### [facility] [address] [place] [address] Donna Tiffany Hgb Solubility Negative Normal Negative [facility] Comment on above: Performed By: #### G LU1HR #### [facility] [address] [place] [address] Donna Tiffany Hgb Variant Normal [facility] Comment on above: Performed By: #### G LU1HR #### [facility] [address] [id number] Donna Allen Interpretation Comment Normal [facility] Comment on above: Result Comment: Norm al adult hemoglobin present. Performed By: #### G LU1HR #### [facility] [address] [place], [place] [address] Donna Allen HIV 1 AND 2 WITH REFLEXon HIV Screen 4th Generation wRfx Non Reactive Normal Non Reactive [facility] Comment on above: Performed By: #### C T/NGNA #### [facility] [address] [place] [address] Donna Allen RPR QUANTon 06-03-2020 Rapid Plasma Reagin, Quant Non Reactive Normal NonRea<1:1 [facility] Comment on above: Performed By: #### G BSCX #### [facility] [address] [place] [address] Donna Allen RUBELLA AB IGGon 06-03-2020 Rubella Antibodies, IgG 2.45 index Normal Immune >0.99 [facility] Comment on above: Result Comment: Non- immune <0.90 Equivocal 0.90 - 0.99 Immune >0.99 Performed By: #### G BSCX #### [facility] [address] [place], [place] [address] Donna Allen US PREG <14 WKSon 06-03-2020 US PREG <14 WKS EXAMINATION: US PREG <14 WKS HISTORY: Secondary physiologic amenorrhea COMPARISON: No relevant comparison available. FINDINGS: GESTATIONAL SAC: Present and normal appearing. POLE: Present and normal appearing. YOLK SAC: Present. CARDIAC: Present. UTERUS: Normal size and appearance. OVARIES: Right: Normal. Left: Normal. CERVIX: 5.8 cm in length and closed. CUL-DE-SAC: Normal. OTHER: None. AGE BY LMP: 12 weeks, 5 days LUIS ENRIQUE BY LMP: 12/10/2020 AGE BY US CRL: 11 weeks, 5 days LUIS ENRIQUE BY US CRL: 12/17/2020 IMPRESSION: 1. Single live intrauterine . Electronically authenticated by: FRANCES VIVAR Date: 2020-06-03 09:02 Normal [facility] VARICELLA IGG ABon 0 Varicella Zoster IgG 2928 index Normal Immune >165 [facility] Comment on above: Result Comment: Nega tive <135 Equivocal 135 - 165 Positive >165 A positive result generally indicates exposure to the pathogen or administration of specific immunoglobulins, but it is not indication of active infection or stage of disease. Performed By: #### G LU1HR #### [facility] [address] [place], [place] [id number] Donna Tiffany CBC AUTO DIFFon 05-31-2020 Basophils (Bld) [#/Vol] 0.0 103/ul Normal 0.0-0.1 [facility] Comment on above: Performed By: #### G BSCX #### [facility] [address] [place] [address] Donna Tiffany Basophils/100 WBC (Bld) 0.4 % Normal 0.2-2.0 [facility] Comment on above: Performed By: #### G BSCX #### [facility] [address] [place] [address] Donna Tiffany Eosinophils (Bld) [#/Vol] 0.0 103/ul Normal 0.0-0.7 [facility] Comment on above: Performed By: #### G BSCX #### [facility] [address] [place], [place] [address] Donna Tiffany Eosinophils/100 WBC (Bld) 0.3 % Critically low 0.9-7.0 [facility] Comment on above: Performed By: #### G BSCX #### [facility] [address] [place], [place] [address] Donna Tiffany Erythrocyte distribution width (RBC) [Ratio] 13.3 % Normal 11.0-15.0 [facility] Comment on above: Performed By: #### G BSCX #### [facility] [address] [place], [place] [address] Donna Tiffany Hematocrit (Bld) [Volume fraction] 40.4 % Normal 36.0-48.0 [facility] Comment on above: Performed By: #### G BSCX #### [facility] [address] [place], [place] [address] Donna Tiffany Hemoglobin (Bld) [Mass/Vol] 13.9 g/dL Normal 12.0-16.0 [facility] Comment on above: Performed By: #### G BSCX #### [facility] [address] [place], [place] [address] Donna Tiffany IG # 0.02 10e3/ul Normal 0.00-0.03 [facility] Comment on above: Performed By: #### G BSCX #### [facility] [address] [place] [address] Donna Tiffany IG % 0.2 % Normal 0.0-0.5 [facility] Comment on above: Performed By: #### G BSCX #### [facility] [address] [place] [address] Donna Tiffany Lymphocytes (Bld) [#/Vol] 1.7 103/ul Normal 1.2-3.8 [facility] Comment on above: Performed By: #### G BSCX #### [facility] [address] [place], [place] [address] Donna Tiffany Lymphocytes/100 WBC (Bld) 19.3 % Critically low 20.5-60.0 [facility] Comment on above: Performed By: #### G BSCX #### [facility] [address] [place], [place] [address] Donna Tiffany MANUAL DIFF REQ NO Normal [facility] Comment on above: Performed By: #### G BSCX #### [facility] [address] [place], [place] [address] Donna Tiffany MCH (RBC) [Entitic mass] 29.6 pg Normal 26.7-34.0 [facility] Comment on above: Performed By: #### G BSCX #### [facility] [address] [place], [place] [address] Donna Tiffany MCHC (RBC) [Mass/Vol] 34.4 g/dL Normal 29.9-35.2 [facility] Comment on above: Performed By: #### G BSCX #### [facility] [address] [place] [address] Donna Tiffany MCV (RBC) [Entitic vol] 86.1 fL Normal 81.0-99.0 [facility] Comment on above: Performed By: #### G BSCX #### [facility] [address] [place], [place] [address] Donna Tiffany Monocytes (Bld) [#/Vol] 0.6 103/ul Normal 0.3-0.8 [facility] Comment on above: Performed By: #### G BSCX #### [facility] [address] [place], [place] [address] Donna Tiffany Monocytes/100 WBC (Bld) 7.0 % Normal 1.7-12.0 [facility] Comment on above: Performed By: #### G BSCX #### [facility] [address] [place], [place] [address] Donna Tiffany Neutrophils (Bld) [#/Vol] 6.5 103/ul Normal 1.4-6.5 [facility] Comment on above: Performed By: #### G BSCX #### [facility] [address] [place], [place] [address] Donna Tiffany Neutrophils/100 WBC (Bld) 72.8 % Normal 43.0-75.0 [facility] Comment on above: Performed By: #### G BSCX #### [facility] [address] [place], [place] [address] Donna Tiffany Platelet mean volume (Bld) [Entitic vol] 10.1 fL Normal 9.5-13.5 [facility] Comment on above: Performed By: #### G BSCX #### [facility] [address] [place], [place] [address] Donna Tiffany Platelets (Bld) [#/Vol] 288 103/ul Normal 150-450 [facility] Comment on above: Performed By: #### G BSCX #### [facility] [address] [place], [place] [address] Donna Tiffany RBC (Bld) [#/Vol] 4.69 106/ul Normal 4.20-5.40 [facility] Comment on above: Performed By: #### G BSCX #### [facility] [address] [place] [address] Donna Allen WBC (Bld) [#/Vol] 8.9 103/ul Normal 4.0-11.0 The [facility] Comment on above: Performed By: #### G BSCX #### [facility] [address] [place] [address] Donna Allen GLYCOHEMOGLOBIN A1Con 2019 Glucose [Mass/Vol] 100 mg/dL Normal [facility] Comment on above: Performed By: #### C T/NGNA #### [facility] [address] [place] [address] Donna Allen HbA1c (Bld) [Mass fraction] 5.1 % Normal <=6.0 [facility] Comment on above: Performed By: #### C T/NGNA #### [facility] [address] [place] [address] Donna Allen PREG QUANT HCGon 05-31-2020 HCG QUANT 940364.00 mIU/mL Normal [facility] Comment on above: Performed By: #### C T/NGNA #### [facility] [address] [place] [address] Donna Allen HCG RANGE SEE BELOW Normal [facility] Comment on above: Result Comment: 5-50 0-1 WEEK 40-300 1-2 WEEKS 100-1,000 2-3 WEEKS 500-6,000 3-4 WEEKS 5,000-200,000 1-2 MONTHS 10,000-100,000 2-3 MONTHS 3,000-50,000 2ND TRIMESTER 1,000-50,000 3RD TRIMESTER Performed By: #### C T/NGNA #### [facility] [address] [place] [address] Donna Tiffany TYPE AND SCREENon 05-31-2020 TYPE AND SCREEN Negative Normal [facility] Comment on above: Performed By: #### T NS #### [facility] [address] [place], [place] [address] Donna Allen Encounters Encounter Date Encounter Type Care Provider Facility Start: 05-03-2024 End: 05-03-2024 ambulatory MALLORIE S ZULEMA Not Available Start: 04-23-2024 End: 04-23-2024 ambulatory SEMAJ MCKENZIE Not Available Start: 04-17-2024 End: 04-17-2024 ambulatory SEMAJ MCKENZIE Not Available Start: 04-12-2024 End: 04-12-2024 ambulatory MALLORIE S ZULEMA Not Available Start: 04-11-2024 End: 04-11-2024 ambulatory ROMA VICTORIA Not Available Start: 04-02-2024 End: 04-02-2024 ambulatory ANN KAMPFER Not Available Start: 03-21-2024 End: 03-21-2024 ambulatory MALLORIE S ZULEMA Not Available Start: 03-19-2024 End: 03-19-2024 ambulatory LIBRA LOVE Not Available Start: 03-07-2024 End: 03-07-2024 ambulatory MALLORIE S ZULEMA Not Available Start: 02-24-2024 End: 02-24-2024 ambulatory ANN KAMPFER Not Available Start: 02-08-2024 ambulatory [facility] Start: 02-07-2024 End: 02-07-2024 ambulatory ANN KAMPFER Not Available Start: 01-27-2024 End: 01-27-2024 ambulatory ANN KAMPFER Not Available Start: 01-25-2024 End: 01-25-2024 ambulatory MALLORIE S ZULEMA Not Available Start: 12-26-2023 Bamboo flowsheet Mallorie S Laugh jayme MANNEQUIN COLORING ARTIST-S Work Phone: [facility] Start: 12-26-2023 Bamboo flowsheet Mallorie S Laugh jayme [employer]NEQUIN COLORING ARTIST[employer] Work Phone: [facility] Start: 12-26-2023 End: 12-26-2023 ambulatory MALLORIE S ZULEMA Not Available Start: 11-30-2023 End: 11-30-2023 ambulatory MALLORIE S ZULEMA Not Available Start: 11-18-2023 End: 11-18-2023 ambulatory MIKKI G DILIA Not Available Start: 11-15-2023 End: 11-15-2023 ambulatory MALLORIE Jose ZULEMA Not Available Start: 11-08-2023 End: 11-08-2023 ambulatory MIKKI G DILIA Not Available Start: 11-02-2023 End: 11-02-2023 ambulatory MALLORIE S ZULEMA Not Available Start: 10-10-2023 End: 10-10-2023 ambulatory MALLORIE S ZULEMA Not Available Start: 09-27-2023 End: 09-27-2023 ambulatory MALLORIE S ZULEMA Not Available Start: 12-12-2020 End: 12-12-2020 Patient encounter procedure ROBERT MONTENEGRO Facility:[facility] Start: 12-03-2020 End: 12-05-2020 Evaluation and management of inpatient ROBERT MONTENEGRO Facility:[facility] Start: 12-01-2020 End: 12-02-2020 Patient encounter procedure ROBERT MONTENEGRO Facility:[facility] Start: 11-19-2020 End: 11-20-2020 Patient encounter procedure ROBERT MONTENEGRO Facility:[facility] Start: 11-13-2020 End: 11-13-2020 Patient encounter procedure ROBERT MONTENEGRO Facility:[facility] Start: 11-01-2020 End: 11-02-2020 Patient encounter procedure ROBERT MONTENEGRO Facility:[facility] Start: 09-18-2020 End: 09-19-2020 Patient encounter procedure ROBERT MONTENEGRO Facility:[facility] Start: 07-25-2020 End: 07-26-2020 Patient encounter procedure ROBERT LAN Facility:[facility] Start: 06-26-2020 End: 06-26-2020 Patient encounter procedure ROBERTTami MONTENEGRO Facility:[facility] Start: 06-02-2020 End: 06-03-2020 Patient encounter procedure ROBERT MONTENEGRO Facility:[facility] Start: 05-31-2020 End: 06-01-2020 Patient encounter procedure ROBERT MONTENEGRO Facility:[facility] Procedures Date Procedure Procedure Detail Performing Clinician Start: 12-26-2023 End: 12-26-2023 Psychotherapy w/patient 60 minutes ELEAZAR (generalized anxiety disorder) (CMS/HCC) Mallorie S Cordova MANNEQUIN COLORING ARTIST[employer]S Work Phone: Comment on above: ELEAZAR (generalized anx iety disorder) (CMS/HCC); Moderate episode of recurrent major depressive disorder (HCC) (CMS/HCC) Start: 12-03-2020 Extraction of Produc ts of Conception, Low Cervical, Open Approach ROBERT MONTENEGRO Start: 07-16-2020 H/O: section History of C-s ection Mallorie Poole MANNEQUIN COLORING ARTIST-S Work Phone: Plan of Treatment Date Care Activity Detail Author Start: 05-13-2024 Influenza vaccination Influenza Vacc ine (#1) [facility] Comment on above: Postponed from 07/15 (Patient Refused) Start: 01-25-2024 End: 01-25-2024 Social Work 01/25/2024 10:00 AM EDT Social Work [facility] [address] [place] [address] Mallorie Poole LISW-S [address] [place] [facility] [place] [address] [facility] Start: 2016 Screening for malign ant neoplasm of cervix [facility] Start: 2007 Screening for malign ant neoplasm of cervix Pap Smear [facility] Immunizations Immunization Date Immunization Notes Care Provider Fa cili 07-30-2021 Pfizer Purple Cap SARS-CoV-2 Vaccination Mallorie Cordova MANNEQUIN COLORING ARTIST-S Work Phone: [facility] 07-08-2021 Pfizer Purple Cap SARS-CoV-2 Vaccination Mallorie Zulema MANNEQUIN COLORING ARTIST-S Work Phone: [facility] 12-05-2020 diphtheria, tetanus toxoids and pertussis vaccine Mallorie Zulema MANNEQUIN COLORING ARTIST-S Work Phone: [facility] 11-12-2012 tetanus toxoid, redu bari diphtheria toxoid, and acellular pertussis vaccine, adsorbed Mallorie Zulema MANNEQUIN COLORING ARTIST-S Work Phone: [facility] 06-22-1999 hepatitis B vaccine, pediatric or pediatric/adolescent dosage Mallorie Cordova MANNEQUIN COLORING ARTIST-S Work Phone: [facility] 06-22-1999 TD(adult) unspecifie d formulation Mallorie Zulema MANNEQUIN COLORING ARTIST-S Work Phone: [facility] 02-23-1999 hepatitis B vaccine, pediatric or pediatric/adolescent dosage Mallorie Cordova MANNEQUIN COLORING ARTIST-S Work Phone: [facility] 12-18-1998 hepatitis B vaccine, pediatric or pediatric/adolescent dosage Mallorie Cordova MANNEQUIN COLORING ARTIST-S Work Phone: [facility] 03-05-1998 measles, mumps and rubella virus vaccine Mallorie Cordova MANNEQUIN COLORING ARTIST-S Work Phone: [facility] 07-31-1997 diphtheria, tetanus toxoids and pertussis vaccine Mallorie Zulema MANNEQUIN COLORING ARTIST-S Work Phone: [facility] 01-15-1991 diphtheria, tetanus toxoids and pertussis vaccine Mallorie Cordova MANNEQUIN COLORING ARTIST-S Work Phone: [facility] 01-15-1991 trivalent poliovirus vaccine, live, oral Mallorie Zulema MANNEQUIN COLORING ARTIST-S Work Phone: [facility] 07-31-1987 trivalent poliovirus vaccine, live, oral Mallorie Zulema MANNEQUIN COLORING ARTIST-S Work Phone: [facility] 05-01-1987 measles, mumps and rubella virus vaccine Mallorie Cordova MANNEQUIN COLORING ARTIST-S Work Phone: [facility] 1986 diphtheria, tetanus toxoids and pertussis vaccine Mallorie Zulema MANNEQUIN COLORING ARTIST-S Work Phone: [facility] 1986 diphtheria, tetanus toxoids and pertussis vaccine Mallorie Cordova MANNEQUIN COLORING ARTIST-S Work Phone: [facility] 1986 trivalent poliovirus vaccine, live, oral Mallorie Cordova MANNEQUIN COLORING ARTIST-S Work Phone: [facility] 1986 diphtheria, tetanus toxoids and pertussis vaccine Mallorie Zulema MANNEQUIN COLORING ARTIST-S Work Phone: [facility] 1986 trivalent poliovirus vaccine, live, oral Mallorie Cordova MANNEQUIN COLORING ARTIST-S Work Phone: [facility] Payers Date Payer Category Payer Medicaid [facility] BCBS [place]ICA[place] [id number] 2022-Present [address] [place] [address] [id number] 2022 Medicaid [id number] 1986 Unknown [id number] 2.16.840.1.321883.3.579.2.593 1986 Unknown [id number] 2.16.840.1.372986.3.579.2.593 1986 Unknown [id number] 2.16.840.1.337170.3.579.2.593 1986 Unknown [id number] 2.16.840.1.283677.3.579.2.593 1986 Unknown [id number] 2.16.840.1.212607.3.579.2.593 1986 Unknown [id number] 2.16.840.1.895093.3.579.2.593 1986 Unknown [id number] 2.16.840.1.129368.3.579.2.593 1986 Unknown [id number] 2.16.840.1.512464.3.579.2.593 1986 Unknown [id number] 2.16.840.1.767151.3.579.2.593 1986 Unknown [id number] 2.16.840.1.186919.3.579.2.593 1986 Unknown [id number] 2.16.840.1.626885.3.579.2.593 1986 Unknown [id number] 2.16.840.1.448266.3.579.2.1286 1986 Unknown [id number] 2.16.840.1.891859.3.579.2.1259 1986 Unknown [id number] 2.16.840.1.111694.3.579.2.1258 1986 Unknown [id number] 2.16.840.1.432529.3.579.2.1258 1986 Unknown [id number] 2.16.840.1.935586.3.579.2.1258 1986 Unknown [id number] 2.16.840.1.252268.3.579.2.1258 1986 Unknown [id number] 2.16.840.1.128874.3.579.2.1258 1986 Unknown [id number] 2.16.840.1.421941.3.579.2.1258 1986 Unknown [id number] 2.16.840.1.371255.3.579.2.1258 1986 Unknown [id number] 2.16.840.1.436106.3.579.2.1258 1986 Unknown [id number] 2.16.840.1.056972.3.579.2.1258 1986 Unknown [id number] 2.16.840.1.751886.3.579.2.1258 1986 Unknown [id number] 2.16.840.1.672782.3.579.2.1258 1986 Unknown [id number] 2.16.840.1.051420.3.579.2.1258 1986 Unknown [id number] 2.16.840.1.005148.3.579.2.1258 1986 Unknown [id number] 2.16.840.1.036034.3.579.2.1258 1986 Unknown [id number] 2.16.840.1.174805.3.579.2.1258 1986 Unknown [id number] 2.16.840.1.722636.3.579.2.1258 1986 Unknown [id number] 2.16.840.1.193813.3.579.2.9 1986 Unknown [id number] 2.16.840.1.396247.3.579.2.9 1986 Unknown [id number] 2.16.840.1.521601.3.579.2.9 1986 Unknown [id number] 2.16.840.1.771674.3.579.2.9 1986 Unknown [id number] 2.16.840.1.135283.3.579.2.1259 1959 Unknown [id number] Social History Date Type Detail Facility Start: 06-14-2023 Tobacco smoking stat [facility] Ex-smoker [facility] History of tobacco use Current smoker [facility] History of tobacco use Cigarette Smoker [facility] Start: 06-14-2023 Tobacco use and exposure Smokeless t obacco non-user [facility] Start: 11-18-2023 Alcohol intake Lifetime non-d lobo (finding) [facility] Start: 06-14-2023 End: 11-18-2023 History of Social function [facility] Start: 06-14-2023 End: 11-18-2023 Tobacco use panel [facility] Start: 06-13-2023 Tobacco Comment 5-10 years sin ce last smoked [facility] Start: 06-13-2023 Alcohol Comment caffeine: more than 4 cups per day [facility] Start: 1985 Sex Assigned At Not on file [facility] Clinical Note 02-07-2024 Note Date & Type Note Facility 02-07-2024 Note US THYROID History: Hyperthyroidism Technique: Ultrasound evaluation was performed of the thyroid gland. Comparison: None available Findings: The right lobe of the thyroid gland measures 6 x 3.6 x 3.7. Cm. TI-RADS 2 nodule measures 3.5 x 3.4 x 2.8 cm. TI-RADS 3 nodule measures 0.9 x 1.2 x 0.9 cm. TI-RADS 3 nodule measures 1.4 x 2.2 x 1.4 cm. TI-RADS 2 nodule measures 0.7 x 0.5 x 0.6 cm. TI-RADS 3 nodule measures 0.8 x 0.8 x 0.6 cm. TI-RADS 3 nodule measures 0.3 x 0.5 x 0.5 cm. The left lobe of the thyroid gland measures 5.3 x 2 x 2.3 cm. TI-RADS 2 nodule measures 2.6 x 2.6 x 3 cm. TI-RADS 4 nodule measures 0.8 x 0.9 x 0.5 cm. TI-RADS 4 nodule measures 0.3 x 0.3 x 0.3 cm. TI-RADS 2 nodule measures 0.5 x 0.5 x 0.4 cm. TI-RADS 3 nodule measures 2.4 x 1.9 x 1.9 cm. The isthmus measures 1.9 cm. Thyroid vascularity is within normal limits. IMPRESSION: Thyroid nodules as detailed. ACR recommendations: TI-RADS level 1: Benign: No FNA TI-RADS level 2: Not suspicious: No FNA TI-RADS level 3: Mildly suspicious: FNA if ? 2.5 cm; Follow if ? 1.5 cm at 1, 3, and 5 years. TI-RADS level 4: Moderately suspicious: FNA if ? 1.5 cm; Follow if ? 1 cm at 1, 2, 3, and 5 years. TI-RADS level 5: Highly Suspicious: FNA if ? 1 cm; Follow if ? 0.5 cm annually until 5 years. ELECTRONICALLY SIGNED BY: Kenny Pérez, DO Not Available Evaluation note Note Date & Type Note Facility Evaluation note Diagnosis ELEAZAR (generalized anxiety disorder) (CMS/HCC) Generalized anxiety disorder Moderate episode of recurrent major depressive disorder (HCC) (CMS/HCC) documented in this encounter [facility] Summary Purpose Family History No Family History Records FoundNo Family History Records FoundNo Family History Records Found Advance Directives No Advanced Directives Records FoundNo Advanced Directives Records FoundNo Advanced Directives Records Found Additional Source Comments INFORMATION SOURCE (unrecogn ized section and content) DATE CREATED AUTHOR 12/15/2020 [facility] DATE CREATED AUTHOR AUTHOR'S ORGANIZ ATION 02/10/2024 [facility] DATE CREATED AUTHOR AUTHOR'S ORGANIZ ATION 05/05/2024 [facility] Care Teams (unrecognized sec tion and content) Data Communications Analyst Relationship Specialty Start Date End Date Mikki Huang DO [address] [place] [address] PCP - General Family Medicine 06/14/23 Data Communications Analyst Relationship Specialty Start Date End Date Mikki Huang DO [address] [place] [address] PCP - General Family Medicine 06/14/23 Reason for Visit (unrecogniz ed section and content) Reason Comments counseling session FOR RECORDS PERTAINING TO PATIENTS WHO ARE OR HAVE BEEN ENROLLED IN A CHEMICAL DEPENDENCY/SUBSTANCEABUSE PROGRAM, SOME INFORMATION MAY BE OMITTED. This clinical summary was aggregated from multiple sources. Caution should be exercised in using it in the provision of clinical care. This summary normalizes information from multiple sources, and as a consequence, information in this document may materially change the coding, format and clinical context of patient data. In addition, data may be omitted in some cases. CLINICAL DECISIONS SHOULD BE BASED ON THE PRIMARY CLINICAL RECORDS. [employer] [facility]. provides no warranty or guarantee of the accuracy or completeness of information in this document.
[2024-05-18 06:25] LABS: Basophils Percent Auto 0.4 % (0.2-2.0); Eosinophils Absolute Auto 0.1 10^3/uL (0.0-0.7); Eosinophils Percent Auto 1.7 % (0.9-7.0); Hematocrit 40.4 % (36.0-48.0); Hemoglobin 13.2 g/dL (12.0-16.0); Immature Granulocytes Abs Auto 0.01 10^3/uL (0.00-0.03); Immature Granulocytes Pct Auto 0.1 % (0.0-0.5); Lymphocytes Absolute Auto 2.3 10^3/uL (1.2-3.8); Lymphocytes Percent Auto 33.3 % (20.5-60.0); Mean Corpuscular HGB Conc 32.7 g/dL (29.9-35.2); Mean Corpuscular Hemoglobin 26.9 pg (26.7-34.0); Mean Corpuscular Volume 82.3 fL (81.0-99.0); Mean Platelet Volume 9.8 fL (9.5-13.5); Monocytes Absolute Auto 0.5 10^3/uL (0.3-0.8); Monocytes Percent Auto 7.8 % (1.7-12.0); Neutrophils Absolute Auto 3.9 10^3/uL (1.4-6.5); Neutrophils Percent Auto 56.7 % (43.0-75.0); Platelet Count 284 10^3/uL (150-450); Red Blood Count 4.91 10^6/uL (4.20-5.40); Red Cell Distribution Width 13.2 % (11.0-15.0)
[2024-05-18] MEDS: LACTATED RINGER'S SOLUTION 1,000 ML 50 ML IV ×2 (06:54→08:21)
[2024-05-18 07:05] LABS: HCG Quantitative <1 mIU/mL
--- NOTE | 2024-05-18 08:47 | P.ON_ITS ---
Brief Operative Note Date of procedure: 05/18/24 Pre-op diagnosis general: desires permanent sterilizatino, multiparity Post-op diagnosis: same as pre-op Procedure: NAME OF PROCEDURE: robotic assisted bilateral laparoscopic salpingectomy PROCEDURE: The patient was taken back to the Operating Room where she was given general anesthesia without difficulty. She was then prepped and draped in the normal sterile fashion after being placed in a dorsal lithotomy position. A wet sponge stick was placed into the patient's vagina. Attention was then turned to the patient's abdomen, where a scalpel was used to make a small infraumbilical incision. The S retractors were then used to dissect the underlying layers until the fascia could be seen. The fascia was then grasped with Katie clamps and tented up. A knife was then used to make a small incision to the fascia. The muscle was identified, at that time two sutures of #0 Vicryl on a GI needle was then used and placed through the fascia. the peritoneum was then identified and entered bluntly. The 10-4 Casi was then placed into the patient's abdomen. This was confirmed with direct visualization of the bowel, using the laparoscope. The patient's abdomen was then insufflated using approximately 4 liters of CO2 gas. Survey of the patient's abdomen demonstrated ovaries were normal in appearance as well as both tubes and uterus. A second and third rt and lt lateral robotic ports which were 8 mm in size, was then placed after the skin incision was made under direct visualization . the robotic arms were engaged. The patient's tube on the patient's right side was identified and tented up using a grasper, the ligasure apparatus was then used to come across the mesosalpingx from the fimbriated end to the insertion site at the uterus, the tube was then amputated and removed in its entirety. This was done on the contralateral side. The tubes were the removed from the patients abdomen. Excellent hemostasis was noted. The lateral ports were then moved under direct visualization with excellent hemostasis. All instruments were removed from the patient's abdomen. The fascia was closed using the #0 Vicryl on GI needle. The skin was closed using 4-0 Vicryl subcuticularly. All instruments were removed from the patient's vagina as well. The patient was taken out of the dorsal lithotomy position and placed in the supine position and taken to recovery in s table condition. Sponge, lap and needle counts were correct x2. Anesthesia: JUANJOSE Surgeon: James Holder [employer] Underwriter: Zoey Kirkland Estimated blood loss (mL): 5 Pathology: other (tubes) Condition: stable Disposition: PACU Urinary Catheter Management Urinary Catheter Management Urethral: Cath placed during this visit: no
[2024-05-18] MEDS: HYDROMORPHONE HCL 0.5 MG/0.5 ML SYRINGE IV (09:41)
[2024-05-18] MEDS: PROMETHAZINE HCL 25 MG TABLET PO (09:41)
== END 2024-05-18 11:24 | disposition home or self-care (01) ==
PROVIDERS: Visit Provider Obstetrics & Gynecology
PROC: (CPT 840; principal; 2024-05-18 07:30)
DX: Z30.2 Encounter for sterilization (principal); N83.8 Other noninflammatory disorders of ovary, fallopian tube and broad ligament; Z87.891 Personal history of nicotine dependence; E66.01 Morbid (severe) obesity due to excess calories; Z68.42 Body mass index [BMI] 45.0-49.9, adult; J45.909 Unspecified asthma, uncomplicated; Z86.32 Personal history of gestational diabetes
CPT/HCPCS: 58661; 36415; 84702; 85025; 88302; J1100; J1170; J1885; J2250; J2371; J2405; J2704; J3010; Q0169